=== PATIENT | male | born 1950 | race African-American/Black ===

== ENCOUNTER 2024-03-31 07:29 | Day surgery (SDC) | payer BC, MEDICAID ==
[2024-03-31] VITALS (12 sets, daily range): BP systolic 149–176; BP diastolic 70–101; PULSE 57–64; RESP 10–15; TEMP 98; O2SAT 96–99
[~2024-03-31] VITALS: Ht 182.9 cm; Wt 100.8 kg
[2024-03-31] MEDS ORDERED: nitroGLYCERIN 0.4mg SUBLingual tab SL PRN (07:45)
[2024-03-31] MEDS ORDERED: LOSA50TA64 PO (08:07)
[2024-03-31] MEDS ORDERED: AMLO-708 PO (08:07)
[2024-03-31] MEDS ORDERED: CLOP75TA34 PO (08:07)
[2024-03-31] MEDS ORDERED: ATOR40TA72 PO (08:07)
[2024-03-31] MEDS ORDERED: CARV3.1244 PO (08:07)
[2024-03-31] MEDS ORDERED: ASPI-1265 PO (08:07)
[2024-03-31 08:45] LABS: BASOPHILS % (AUTO) 0.6 % (0-1); EOSINOPHILS # (AUTO) 0.1 X10'3 (0-0.9); EOSINOPHILS % (AUTO) 2.2 % (0-6); HEMATOCRIT 40.8 % (42.0-52.0); HEMOGLOBIN 13.7 g/dl (14.0-17.9); LYMPHOCYTES # (AUTO) 1.7 X10'3 (1.1-4.8); LYMPHOCYTES % (AUTO) 26.5 % (21-51); MEAN CORPUSCULAR HEMOGLOBIN 32.7 PG (27.0-31.0); MEAN CORPUSCULAR HGB CONC 33.6 g/dL (33.0-36.5); MEAN CORPUSCULAR VOLUME 97.2 FL (78-98); MEAN PLATELET VOLUME 7.2 FL (7.4-10.4); MONOCYTES # (AUTO) 0.6 X10'3 (0-0.9); MONOCYTES % (AUTO) 8.8 % (2-12); NEUTROPHILS % (AUTO) 61.9 % (42-75); PLATELET COUNT 251 X10'3 (140-440); RED CELL DISTRIBUTION WIDTH 15.4 % (11.5-14.5); WHITE BLOOD COUNT 6.4 X10'3 (4.5-11.0)
[2024-03-31] MEDS ORDERED: iohexol 350 MG/ML 50ML vial IV ONE ×3 (08:52→12:21)
[2024-03-31] MEDS ORDERED: fentaNYL/PF 50MCG/1 ML 2ML syringe ONE (08:52)
[2024-03-31] MEDS ORDERED: midazolam 1 mg/ML 2ml injection ONE (08:52)
[2024-03-31] MEDS ORDERED: iohexol 350MG/ML 100ml bottle IV ONE (08:52)
[2024-03-31] MEDS ORDERED: LIDOcaine 1% 30ml preserv. free vial ONE (08:52)
[2024-03-31] MEDS: LORazepam 0.5 MG tablet PO PRN (08:54)
[2024-03-31] MEDS: diphenhydrAMINE 25mg capsule PO PRN (08:54)
[2024-03-31] MEDS: normal saline 1,000 ML IV SCH (08:54)
[2024-03-31 08:55] LABS: ALBUMIN 3.6 G/DL (3.4-5.0); BLOOD UREA NITROGEN 18 MG/DL (7-18); BUN/CREATININE RATIO 18.8 (10.0-20.0); CALCIUM 9.5 MG/DL (8.5-10.1); CHLORIDE 106 MMOL/L (99-107); CREATININE 0.96 MG/DL (0.60-1.10); GLUCOSE 85 MG/DL (70-104); POTASSIUM 4.4 MMOL/L (3.5-5.1); SODIUM 142 MMOL/L (135-145); eCRCL 74 ML/MIN; eGFR > 90 ML/MIN
[2024-03-31 08:56] LABS: ANION GAP 5 (8-16); TOTAL CARBON DIOXIDE 30.7 MMOL/L (24-32)
[2024-03-31 08:58] LABS: APTT 28 SECONDS (22-32); PROTHROMBIN TIME 10.5 SECONDS (9.0-12.0)
[2024-03-31] MEDS ORDERED: HYDROcodone/acetaminophen 5mg/325mg tablet PO PRN (13:25)
[2024-03-31] MEDS ORDERED: ondansetron/PF 4mg/2ml inj IV PRN (13:25)
[2024-03-31] MEDS ORDERED: HYDROcodone/acetaminophen 10/325mg tab PO PRN (13:25)
[2024-03-31] MEDS ORDERED: OXAZEpam 15mg capsule PO PRN (13:25)
[2024-03-31] MEDS ORDERED: proCHLORperazine 10 MG/2 ml inj IV PRN (13:25)
[2024-03-31] MEDS: amLODIPine 5mg tablet PO SCH (17:06)
[2024-03-31] MEDS: losartan 50mg tablet PO SCH (17:06)
[2024-03-31] MEDS: aspirin 81mg tab.chew PO SCH (17:06)
[2024-03-31] MEDS: clopidogrel 75mg tablet PO SCH (17:07)
[2024-03-31] MEDS: atorvastatin 20mg tablet PO ONE (17:07)
[2024-03-31] MEDS: carVEDilol 3.125mg tablet PO SCH (17:08)
[2024-04-01] MEDS ORDERED: atorvastatin 20mg tablet PO SCH (08:00)
== END 2024-03-31 18:45 | disposition home or self-care (01) ==
LOC: SSTAY O 07:29
PROVIDERS: ATTEND Internal Medicine Cardiovascular Disease
DX: R94.39 Abnormal result of other cardiovascular function study (principal); I25.10 Atherosclerotic heart disease of native coronary artery without angina pectoris; I65.21 Occlusion and stenosis of right carotid artery; R06.02 Shortness of breath; R06.09 Other forms of dyspnea; I10 Essential (primary) hypertension; E78.5 Hyperlipidemia, unspecified; I69.354 Hemiplegia and hemiparesis following cerebral infarction affecting left non-dominant side; Z98.890 Other specified postprocedural states; Z79.02 Long term (current) use of antithrombotics/antiplatelets; Z79.82 Long term (current) use of aspirin; Z79.899 Other long term (current) drug therapy; Z88.8 Allergy status to other drugs, medicaments and biological substances
CPT/HCPCS: 36415; 71046; 80048; 85025; 85610; 85730; 93005; 93458; 99152; 99153; G0278; J1644; J2003; J2250; J3010; J7030; Q0163; Q9967; A6258; C1760